=== PATIENT | female | born 1995 ===

== ENCOUNTER 2021-01-17 13:31 | Emergency (ER) | payer MEDICAID ==
[~2021-01-17] VITALS: Ht 167.6 cm; Wt 90.9 kg
[2021-01-17 13:58] VITALS: TEMP 98.2
[2021-01-17 16:07] LABS: MUCOUS Present /lpf; PH 8 (5-8); URINE APPEARANCE Clear; URINE BACTERIA Rare /hpf; URINE BILIRUBIN Negative (NEGATIVE); URINE BLOOD 1+ (NEGATIVE); URINE COLOR Straw; URINE GLUCOSE Negative (NEGATIVE); URINE KETONE Negative (NEGATIVE); URINE LEUKOCYTE ESTERASE Trace (NEGATIVE); URINE NITRATE Negative (NEGATIVE); URINE PROTEIN(semi-quant) Negative (NEGATIVE); URINE RBC 0-2 /hpf; URINE UROBILINOGEN Negative (NEGATIVE)
[2021-01-17 17:31] LABS: COLLECTION METHOD CLEAN CATCH
[2021-01-17] MEDS ORDERED: ZITHROMAX Z PA250 MG PO (17:52)
[2021-01-17 19:29] VITALS: BP 107/80; PULSE 103
== END 2021-01-17 19:30 | disposition home or self-care (01) ==
LOC: COL.ER 13:31
PROVIDERS: Student in an Organized Health Care Education/Training Program
DX: O98.511 Other viral diseases complicating pregnancy, first trimester (principal); O99.511 Diseases of the respiratory system complicating pregnancy, first trimester; U07.1 COVID-19; J12.82 Pneumonia due to coronavirus disease 2019; Z3A.01 Less than 8 weeks gestation of pregnancy
CPT/HCPCS: J7030

== ENCOUNTER 2021-01-25 14:58 | Emergency (ER) | payer MEDICAID ==
[~2021-01-25] VITALS: Ht 167.6 cm; Wt 90.9 kg
[~2021-01-25 14:58] MED LIST: ZITHROMAX Z PA250 MG PO
[2021-01-25 15:16] VITALS: BP 130/83; PULSE 82; TEMP 98.2
== END 2021-01-25 16:51 | disposition other institution (70) ==
LOC: COL.ER 14:58
DX: N93.9 Abnormal uterine and vaginal bleeding, unspecified (principal)

== ENCOUNTER 2021-12-08 08:40 | Emergency (ER) | payer MEDICAID ==
[~2021-12-08] VITALS: Ht 167.6 cm; Wt 102.3 kg
[2021-12-08 08:58] VITALS: TEMP 98.4
[2021-12-08] MEDS ORDERED: NORCO 325 MG-51 TAB PO (09:21)
[2021-12-08 09:35] VITALS: BP 107/72; PULSE 87
== END 2021-12-08 09:35 | disposition home or self-care (01) ==
LOC: COL.ER 08:40
DX: M54.16 Radiculopathy, lumbar region (principal); Z28.310 Unvaccinated for COVID-19
CPT/HCPCS: J8540